=== PATIENT | male | born 1995 | race Caucasian/White ===

== ENCOUNTER 2017-12-17 17:45 | Emergency (ER) | payer SELFPAY ==
[2017-12-17] MEDS ORDERED: IBUPROFEN600 MG PO (19:20)
[2017-12-17 20:00] VITALS: BP 119/80
== END 2017-12-17 20:05 | disposition home or self-care (01) | DRG 605 ==
LOC: ED 17:45
DX: S60.221A Contusion of right hand, initial encounter (principal); W22.8XXA Striking against or struck by other objects, initial encounter

== ENCOUNTER 2018-11-02 11:01 | Emergency (ER) | payer SELFPAY ==
[~2018-11-02] VITALS: Ht 175.3 cm; Wt 80.0 kg
[~2018-11-02 11:01] MED LIST: IBUPROFEN600 MG PO
[2018-11-02 12:19] VITALS: BP 127/80
== END 2018-11-02 13:18 | disposition home or self-care (01) | DRG 395 ==
LOC: ED 11:01
DX: K64.4 Residual hemorrhoidal skin tags (principal); F17.210 Nicotine dependence, cigarettes, uncomplicated

== ENCOUNTER 2018-12-06 10:15 | Emergency (ER) | payer SELFPAY ==
[~2018-12-06] VITALS: Ht 175.3 cm; Wt 70.0 kg
[2018-12-06 10:43] LABS: HEMATOCRIT 45.1 % (39.0-50.0); HEMOGLOBIN 15.2 g/dl (14.0-18.0); IMMATURE GRANULOCYTES 0.2 % (0.0-5.0); MEAN CELL VOLUME 90.4 fL CALC (80.0-100.0); MEAN CORPUSCULAR HGB 30.5 pG CALC (26.0-32.0); MEAN CORPUSCULAR HGB CONC 33.7 g/L CALC (32.0-36.0); NEUT# 2.18 thou/uL (1.82-7.42); RED BLOOD COUNT 4.99 mill/uL (4.70-6.10); RED CELL DISTRI WIDTH 12.2 % (11.5-15.5)
[2018-12-06 10:51] LABS: ALBUMIN 4.6 g/dL (3.2-5.0); ALKALINE PHOSPHATASE 81 u/l (38-126); AMYLASE 58 u/l (30-110); ANION GAP 16 (6-22 (CALC)); BILIRUBIN, TOTAL 0.8 mg/dL (0.0-1.4); BUN 11 mg/dL (9-20); BUN/CREATININE RATIO 12 (12-20 (CALC)); CARBON DIOXIDE 25 mmol/l (22-30); CHLORIDE 105 mmol/l (95-108); GFR > 60 ML/MIN (>=60 (CALC)); GFR FOR AFR.AMER. > 60 ML/MIN (>=60 (CALC)); LIPASE 55 u/l (23-300); POTASSIUM 4.3 mmol/l (3.5-5.1); SGOT/AST 27 u/l (17-59); SODIUM 142 mmol/l (137-146); TOTAL PROTEIN 7.3 g/dL (6.3-8.2)
[2018-12-06] MEDS ORDERED: ZOFRAN ODT4 MG PO (11:45)
[2018-12-06] MEDS ORDERED: BACTRIM DS1 TAB PO (11:45)
[2018-12-06 11:47] VITALS: BP 120/64
== END 2018-12-06 11:54 | disposition home or self-care (01) | DRG 392 ==
LOC: ED 10:15
PROVIDERS: Emergency Medicine
DX: K52.9 Noninfective gastroenteritis and colitis, unspecified (principal); F17.200 Nicotine dependence, unspecified, uncomplicated
CPT/HCPCS: Q9967